=== PATIENT | male | born 1980 | race Caucasian/White ===

== ENCOUNTER 2025-03-26 01:56 | Emergency (ER) | payer BC ==
[2025-03-26 02:51] LABS: Hematocrit 39.8 % (42.0-52.0); Hemoglobin 13.0 g/dL (14.0-18.0); MDiff Complete? YES; Mean Corpuscular Hemoglobin 30.8 pg (27.0-31.0); Mean Corpuscular Volume 94.6 fl (78.0-98.0); Platelet Count 344 10x3/uL (130-400); Red Blood Cell (RBC) Count 4.21 mill/uL (4.70-6.10); White Blood Cell (WBC) Count 13.9 10x3/uL (4.8-10.8)
[2025-03-26 03:00] LABS: ALT (SGPT) 238 U/L (Less than 45); AST (SGOT) 353 U/L (11-34); Albumin 3.1 g/dL (3.1-4.5); Alkaline Phosphatase 170 U/L (40-110); Anion Gap 15 mmol/L (10-20); BUN (Urea Nitrogen) 11 mg/dL (8.9-20.6); Bilirubin, Total 0.6 mg/dL (0.3-1.2); Calc. Creatinine Clearance 0 mL/min (70-130); Calcium 8.5 mg/dL (7.8-10.44); Carbon Dioxide 24 mmol/L (22-29); Chloride 102 mmol/L (98-107); Globulin 3.8 g/dL (2.4-3.5); Glucose 110 mg/dL (70-105); Potassium 3.5 mmol/L (3.5-5.1); Sodium 137 mmol/L (136-145)
[2025-03-26 03:16] LABS: Glucose, Urine (Dipstick) Negative (Negative); Leukocyte Small (Negative); Protein, Urine (Dipstick) Trace mg/dL (Neg-Trace); Specific Gravity, Urine Less/Equal 1.005 (1.005-1.030)
[2025-03-26 03:19] LABS: CAUTI Indications for Culture Dysuria,urgency,freq; RBC/HPF 0-3 HPF (0-3)
[2025-03-26 03:20] LABS: Bacteria/HPF 1+ HPF (None Seen); Urine Culture Reflex Yes Yes
[2025-03-26] MEDS ORDERED: cefTRIAXone (ROCEPHIN) 2 GM VIAL ONE (03:38)
[2025-03-26] MEDS ORDERED: Iopamidol 370 76% 100 ML VIAL ONE (09:00)
== END 2025-03-26 05:11 | disposition home or self-care (01) ==
LOC: MADERS 01:56
DX: N10 Acute pyelonephritis (principal); R74.01 Elevation of levels of liver transaminase levels; F17.290 Nicotine dependence, other tobacco product, uncomplicated
CPT/HCPCS: 36415; 71045; 74177; 80053; 81001; 83605; 85025; 87040; 87077; 87086; 87149; 87186; 87428; 96374; J0696; J7030; Q9967